=== PATIENT | female | born 1975 | race African-American/Black ===

== ENCOUNTER 2017-02-05 09:34 | Emergency (ER) | payer OTHER ==
[~2017-02-05] VITALS: Ht 167.6 cm; Wt 81.6 kg
[~2017-02-05 09:34] MED LIST: AMOXICILLIN500 MG ORAL; ROBITUSSIN COU118 M4 PO; SYNTHROID25 MCG ORAL
[2017-02-05 09:43] VITALS: BP 134/93
[2017-02-05 10:06] LABS: BASOPHILS % (AUTO) 0.7 % (0.0-2.0); EOSINOPHILS % (AUTO) 0.5 % (0.0-3.0); MEAN CORPUSCULAR HEMOGLOBIN 31.8 PG (27.0-31.0); MEAN CORPUSCULAR HGB CONC 33.4 G/DL (32.0-36.0); MEAN CORPUSCULAR VOLUME 95 FL (80-99); MEAN PLATELET VOLUME 8.8 FL (6.5-10.1); MONOCYTES % (AUTO) 6.2 % (1.0-10.0); NEUTROPHILS % (AUTO) 77.7 % (45.0-75.0); PLATELET COUNT 245 K/UL (150-450); WHITE BLOOD COUNT 13.9 K/UL (4.8-10.8)
[2017-02-05 10:16] LABS: APPEARANCE,URINE CLEAR; KETONES,URINE NEGATIVE (NEGATIVE); LEUKOCYTE ESTERASE ,URINE NEGATIVE (NEGATIVE); NITRITE,URINE NEGATIVE (NEGATIVE); PH,URINE 6.5 (4.5-8.0); PROTEIN,URINE NEGATIVE (NEGATIVE); UROBILINOGEN,URINE NORMAL MG/DL (0.0-1.0)
[2017-02-05 10:18] LABS: ALANINE AMINOTRANSFERASE 23 U/L (3-33); ALBUMIN/GLOBULIN RATIO 1.2 (1.0-2.7); ANION GAP 12 (5-15); ASPARTATE AMINO TRANSFERASE 16 U/L (5-40); CARBON DIOXIDE 29 mEQ/L (20-30); CHLORIDE 95 mEQ/L (98-107); CREATININE 0.6 mg/dL (0.5-0.9); GLOMERULAR FILTRATION RATE > 60 mL/min (>60); HEMOLYSIS 11; LIPASE 17 U/L (< 60); POTASSIUM 3.2 mEQ/L (3.4-4.9); SODIUM 136 mEQ/L (135-145)
[2017-02-05 11:09] VITALS: BP 129/89
[2017-02-05] MEDS ORDERED: CYCLOBENZAPRINE10 MG ORAL (11:50)
[2017-02-05] MEDS ORDERED: NITROFURANTOIN100 M2 ORAL (11:50)
[2017-02-05] MEDS ORDERED: IBUPROFEN600 MG ORAL (11:50)
[2017-02-05 13:00] VITALS: BP 115/79
--- NOTE | 2017-02-05 13:32 | Diagnostic Imaging Report ---
Clinical Indication: Epigastric and flank pain Technique: No oral contrast utilized, per emergency room physician request IV administration nonionic contrast. Venous phase spiral acquisition obtained through the abdomen and pelvis. Multiplanar reconstructions were generated. Total dose length product 1034 mGycm. CTDIvol(s) 18 mGy. Dose reduction achieved using automated exposure control Comparison: None Findings: Lack of oral contrast limits assessment of the GI tract. There is no evidence of diverticulosis or diverticulitis. The appendix is normal. Small bowel loops are fluid-filled, nondilated. The distal esophagus, stomach, duodenum are unremarkable. No free or loculated intraperitoneal air or fluid is evident. The liver demonstrates a 17 mm attenuation lesion within segment. This demonstrates some questionable peripheral nodularity, possibly some enhancement. There is a very faint 11 mm low-attenuation lesion within segment 8. There are a few other subcentimeter low-attenuation hepatic lesions which are too small to characterize. The gallbladder, bile ducts, pancreas on the spleen right adrenal are unremarkable. There is a 15 x 10 mm mass in the left adrenal. The kidneys are unremarkable. No calculi or hydronephrosis. No retroperitoneal or mesenteric mass or adenopathy. The uterus is enlarged, heterogeneous. Uncertain as to whether there are multiple fibroids or a single dominant fundal fibroid. The ovaries are. No pelvic adenopathy. The included lung bases are clear. The bones are unremarkable. Impression: Limited assessment of the GI tract, due to lack of oral contrast Fluid-filled small bowel loops, significance uncertain but could represent mild enteritis changes No acute process otherwise Multiple liver lesions, as described. The smaller subcentimeter ones could represent benign simple cysts or bile hamartomas. However, the larger are nonspecific, do not appear cystic. Could represent multiple atypical hemangiomas, but neoplasm not excludable. Consider further evaluation with liver protocol MRI 15 mm left adrenal mass. MRI with adrenal protocol likewise recommended Fibroid uterus The CT scanner at [facility] is accredited by the [employer] and the scans are performed using protocols designed to limit radiation exposure to as low as reasonably achievable to attain images of sufficient resolution adequate for diagnostic evaluation.
--- NOTE | 2017-02-05 17:27 | Emergency Room Report ---
History of Present Illness General Chief Complaint: Female Urogenital Problems Source: Patient Present Illness HPI 41-year-old female presents ED complaining of back pain x2 months. Denies trauma. Notes pain to the lower back. Throbbing, 04/21. Nonradiating. Patient states there is increased urinary frequency x2 months. Denies any dysuria. Denies hematuria. Denies fevers or chills. Denies nausea or vomiting. Also notes some pain to middle abdomen. No other aggravating or relieving factors. Denies any other associated symptoms Allergies: Coded Allergies: No Known Allergies (Unverified , 08/22/16) Patient History Past Medical History: none Past Surgical History: none Pertinent Family History: none Social History: Denies: alcohol use, drug use, smoking Immunizations: UTD Reviewed Nursing Documentation: PMH: Agreed, PSxH: Agreed Review of Systems All Other Systems: negative except mentioned in HPI Physical Exam Vital Signs Date Time Temp Pulse Resp B/P Pulse Ox O2 Delivery O2 Flow Rate FiO2 02/05/17 09:38 98.1 96 20 134/93 100 Room Air Sp02 EP Interpretation: reviewed, normal General Appearance: no apparent distress, alert, GCS 15, non-toxic Head: normocephalic Eyes: bilateral eye PERRL, bilateral eye normal inspection ENT: normal ENT inspection Neck: normal inspection Respiratory: chest non-tender, lungs clear, normal breath sounds, speaking full sentences Cardiovascular #1: regular rate, rhythm, no edema Gastrointestinal: normal bowel sounds, soft, non-distended, no guarding, no rebound, tenderness - periumbilical Rectal: deferred Genitourinary: CVA tenderness (R), CVA tenderness (L) Musculoskeletal: other - paraspinal lumbar tenderness Neurologic: alert, oriented x3, responsive, motor strength/tone normal, sensory intact, speech normal Psychiatric: normal inspection Skin: normal inspection Lymphatic: normal inspection Medical Decision Making Diagnostic Impression: Primary Impression: Dysuria ER Course Hospital Course 41-year-old F presents to ED with abdominal pain, flank pain, back pain Differential diagnosis includes-appendicitis, cholecystitis, small bowel obstruction, gastritis, Clinical course Patient placed on stretcher. After initial history and physical I ordered labs , IV fluids,CT scan Labs - noted leukocytosis, electyrolytes ok, LFTs normal, UA unremarkable CT scan shows some lesions in the liver which require further evaluation with MRI. adrenal mass noted Discussed findings with the patient. She will followup with PMD. Pain in back is a muscular however given dysuria symptoms we will provide antibiotics. I feel this is a highly complex case requiring extensive working including EKG/ Rhythm strip, Xray/CT/US, Blood/urine lab work, repeat exams while in ED, and administration of strong opiates/narcotics for pain control, admission to hospital or close patient follow up. Diagnosis - dysuria Stable and discharged to home with Rx Macrobid, Motrin, FLexeril. Followup with PMD. Return to ED if symptoms recur or worsen Labs Test 02/05/17 09:45 White Blood Count 13.9 K/UL (4.8-10.8) Red Blood Count 4.70 M/UL (4.20-5.40) Hemoglobin 15.0 G/DL (12.0-16.0) Hematocrit 44.7 % (37.0-47.0) Mean Corpuscular Volume 95 FL (80-99) Mean Corpuscular Hemoglobin 31.8 PG (27.0-31.0) Mean Corpuscular Hemoglobin Concent 33.4 G/DL (32.0-36.0) Red Cell Distribution Width 12.0 % (11.6-14.8) Platelet Count 245 K/UL (150-450) Mean Platelet Volume 8.8 FL (6.5-10.1) Neutrophils (%) (Auto) 77.7 % (45.0-75.0) Lymphocytes (%) (Auto) 15.0 % (20.0-45.0) Monocytes (%) (Auto) 6.2 % (1.0-10.0) Eosinophils (%) (Auto) 0.5 % (0.0-3.0) Basophils (%) (Auto) 0.7 % (0.0-2.0) Urine Color Pale yellow Urine Appearance Clear Urine pH 6.5 (4.5-8.0) Urine Specific [place] 1.010 (1.005-1.035) Urine Protein Negative (NEGATIVE) Urine Glucose (UA) Negative (NEGATIVE) Urine Ketones Negative (NEGATIVE) Urine Occult Blood Negative (NEGATIVE) Urine Nitrite Negative (NEGATIVE) Urine Bilirubin Negative (NEGATIVE) Urine Urobilinogen Normal MG/DL (0.0-1.0) Urine Leukocyte Esterase Negative (NEGATIVE) Urine HCG, Qualitative Negative Sodium Level 136 mEQ/L (135-145) Potassium Level 3.2 mEQ/L (3.4-4.9) Chloride Level 95 mEQ/L (98-107) Carbon Dioxide Level 29 mEQ/L (20-30) Anion Gap 12 (5-15) Blood Urea Nitrogen 11 mg/dL (7-23) Creatinine 0.6 mg/dL (0.5-0.9) Estimat Glomerular Filtration Rate > 60 mL/min (>60) Glucose Level 91 mg/dL (74-106) Calcium Level 9.0 mg/dL (8.6-10.2) Total Bilirubin 0.3 mg/dL (0.0-1.2) Aspartate Amino Transf (AST/SGOT) 16 U/L (5-40) Alanine Aminotransferase (ALT/SGPT) 23 U/L (3-33) Alkaline Phosphatase 51 U/L (35-104) Total Protein 7.0 g/dL (6.6-8.7) Albumin 3.9 g/dL (3.5-5.2) Globulin 3.1 g/dL Albumin/Globulin Ratio 1.2 (1.0-2.7) Lipase 17 U/L (< 60) CT/MRI/US Diagnostic Results CT/MRI/US Diagnostic Results : Imaging Test Ordered: CT A/P Impression Multiple liver lesions, as described. The smaller subcentimeter ones could represent benign simple cysts or bile hamartomas. However, the larger are nonspecific, do not appear cystic. Could represent multiple atypical hemangiomas, but neoplasm not excludable. Consider further evaluation with liver protocol MRI 15 mm left adrenal mass. MRI with adrenal protocol likewise recommended Fibroid uterus Last Vital Signs Date Time Temp Pulse Resp B/P Pulse Ox O2 Delivery O2 Flow Rate FiO2 02/05/17 13:00 98.1 82 20 115/79 100 Room Air Status: improved Disposition: HOME, SELF-CARE Condition: Stable Scripts Cyclobenzaprine Hcl* (FLEXERIL*) 10 Mg Tablet 10 MG ORAL TID Y for Muscle Spasm, #20 TAB Prov: FARHAD ALMAZAN M.D. 02/05/17 Ibuprofen* (MOTRIN*) 600 Mg Tablet 600 MG ORAL Q8H Y for For Pain, #30 TAB 0 Refills Prov: FARHAD ALMAZAN M.D. 02/05/17 Nitrofurantoin Monohyd/M-Cryst* (MACROBID 100 MG*) 100 Mg Capsule 100 MG ORAL EVERY 12 HOURS for 7 Days, CAP Prov: FARHAD ALMAZAN M.D. 02/05/17 Patient Instructions: Urinary Tract Infection FARHAD ALMAZAN M.D. Feb 05, 2017 17:27
== END 2017-02-05 13:02 | disposition left against medical advice (07) ==
LOC: EMR 10:00
DX: R30.0 Dysuria (principal); M54.5 Low back pain; R10.33 Periumbilical pain; D72.829 Elevated white blood cell count, unspecified; K76.9 Liver disease, unspecified; D25.9 Leiomyoma of uterus, unspecified; E27.9 Disorder of adrenal gland, unspecified
CPT/HCPCS: 36415; 74177; 80053; 81003; 81025; 83690; 85025; 96360; 99284; Q9967

== ENCOUNTER 2017-05-05 13:13 | Emergency (ER) | payer OTHER ==
[~2017-05-05] VITALS: Ht 167.6 cm; Wt 79.4 kg
[~2017-05-05 13:13] MED LIST changes: +CYCLOBENZAPRINE10 MG ORAL; +IBUPROFEN600 MG ORAL; +NITROFURANTOIN100 M2 ORAL
[2017-05-05 13:46] VITALS: BP 131/78
--- NOTE | 2017-05-05 13:59 | Emergency Room Report ---
History of Present Illness General Chief Complaint: Burn/Smoke Inhalation Present Illness HPI 41-year-old female presents to the emergency department complaining of burn to the right forearm x5 days. Patient reports initial blistering which has popped she states she has 8/10 in severity tenderness and sensitivity localized to the area of the burn. Patient states she sustained a burn while cooking. Denies fevers, progressive erythema, increased temperature palpation. Patient denies past medical history. Denies CP, Palpitations, LOC, AMS, dizziness, Changes in Vision, Sensation, paresthesias, or a sudden severe headache. Allergies: Coded Allergies: No Known Allergies (Unverified , 08/22/16) Patient History Past Medical History: see triage record Past Surgical History: none Pertinent Family History: none Now: No Reviewed Nursing Documentation: PMH: Agreed, PSxH: Agreed Review of Systems All Other Systems: negative except mentioned in HPI Physical Exam Vital Signs Date Time Temp Pulse Resp B/P Pulse Ox O2 Delivery O2 Flow Rate FiO2 05/05/17 13:26 98.2 88 20 131/78 98 Room Air Sp02 EP Interpretation: reviewed, normal General Appearance: no apparent distress, alert, GCS 15, non-toxic Head: normocephalic, atraumatic Eyes: bilateral eye PERRL, bilateral eye normal inspection ENT: hearing grossly normal, normal pharynx, no angioedema, normal voice Neck: full range of motion, supple/symm/no masses Respiratory: lungs clear, normal breath sounds, speaking full sentences Cardiovascular #1: regular rate, rhythm, no edema Musculoskeletal: back normal, gait/station normal, normal range of motion, non- tender Neurologic: alert, oriented x3, responsive, motor strength/tone normal, sensory intact, speech normal Psychiatric: judgement/insight normal, memory normal, mood/affect normal Skin: normal color, warm/dry, well hydrated, [place] - Second-degree burn of the right forearm covering 1 % of the BSA, non-circumferential, no erythema, no increased temperature to palpation. Medical Decision Making PA Attestation Dr. mccoy is my supervising Physician whom patient management has been discussed with. Diagnostic Impression: Primary Impression: Burn injury ER Course Pt. presents to the ED c/o pain, swelling, and erythema of Right forearm. s/p burn while cooking 5 days ago. Ddx considered but are not limited to cellulitis, burn, Septic Joint, fracture, d/L, gout, fungal infection, DVT Vital signs: are WNL, pt. is afebrile H&PE are most consistent with : Second-degree burn of the right forearm covering 1 % of the BSA, non-circumferential- no evidence of secondary infection. ORDERS: none required at this time, the diagnosis is clinical ED INTERVENTIONS: -Wound care - Silvadene cream and sterile dressing was applied. DISCHARGE: At this time pt. is stable for d/c to home. Will provide printed patient care instructions, and any necessary prescriptions. Care plan and follow up instructions have been discussed with the patient prior to discharge. Last Vital Signs Date Time Temp Pulse Resp B/P Pulse Ox O2 Delivery O2 Flow Rate FiO2 05/05/17 13:46 88 20 Room Air 05/05/17 13:46 98.2 131/78 98 Disposition: HOME, SELF-CARE Condition: Stable Scripts Lidocaine (Lidocaine) 15 Gm Cream..g. 1 GM TP QID, #15 GM Prov: Genevieve Maynard 05/05/17 Patient Instructions: Second-Degree Burn Additional Instructions: Take medications as directed. Follow up with a Primary Care Provider in 3-5 days, even if your symptoms have resolved. --Please review list of primary care clinics, if you do not already have a primary care provider Return sooner to ED if new symptoms occur, or current symptoms become worse. - Please note that this Emergency Department Report was dictated using [employer] technology software, occasionally this can lead to erroneous entry secondary to interpretation by the dictation equipment. Genevieve Maynard May 05, 2017 13:59
[2017-05-05] MEDS ORDERED: Silver Sulfadiazine Cream 25gm TOPIC ONE (14:00)
[2017-05-05] MEDS ORDERED: LIDOCAINE15 GM TP (14:03)
[2017-05-05 14:08] VITALS: BP 131/78
== END 2017-05-05 14:10 | disposition home or self-care (01) ==
LOC: EMR 14:10
DX: T22.211A Burn of second degree of right forearm, initial encounter (principal); T31.0 Burns involving less than 10% of body surface; X08.8XXA Exposure to other specified smoke, fire and flames, initial encounter; Y93.G3 Activity, cooking and baking; Y92.9 Unspecified place or not applicable
CPT/HCPCS: 99283

== ENCOUNTER 2017-12-25 19:14 | Emergency (ER) | payer SELFPAY ==
[~2017-12-25] VITALS: Ht 167.6 cm; Wt 85.7 kg
[~2017-12-25 19:14] MED LIST changes: +LIDOCAINE15 GM TP
[2017-12-25 19:40] VITALS: BP 146/99
[2017-12-25] MEDS ORDERED: ERYTHROMYCIN3.5 GM BOTH EYES (19:49)
--- NOTE | 2017-12-25 19:49 | Emergency Room Report ---
History of Present Illness General Chief Complaint: Eye Problems Source: Patient Present Illness HPI 42 yo female patient presents to ER complaining of bilateral injection in eyes. Patient reports itchiness and yellow crusting of eyes in the morning. Patient denies vision changes, denies vision loss. Reports had been using eye drops given to her by her mother but that she does not believe they are working. Denies contacts with similar symptoms. Denies FB sensation. Denies fever. Denies exposure to chemicals. Denies chest pain, SOB, rash. Denies STI. Denies wearing glasses or contact lenses. Allergies: Coded Allergies: No Known Allergies (Unverified , 08/22/16) Patient History Past Medical History: see triage record Last Menstrual Period: 11/27/17 Now: No : 3 Para: 3 Reviewed Nursing Documentation: PMH: Agreed, PSxH: Agreed Nursing Documentation-PMH Past Medical History: No History, Except For Review of Systems All Other Systems: negative except mentioned in HPI Physical Exam Vital Signs Date Time Temp Pulse Resp B/P (MAP) Pulse Ox O2 Delivery O2 Flow Rate FiO2 12/25/17 19:24 98.6 87 14 146/99 98 Room Air 98.6 Sp02 EP Interpretation: reviewed, normal General Appearance: well appearing, no apparent distress, alert, GCS 15 Head: normocephalic, atraumatic Eyes: bilateral eye normal inspection, bilateral eye PERRL, bilateral eye Scleral Injection ENT: hearing grossly normal, normal pharynx, no angioedema, normal voice, TMs + canals normal, uvula midline, moist mucus membranes Neck: full range of motion Respiratory: lungs clear, normal breath sounds, no rhonchi, no respiratory distress, no accessory muscle use, no wheezing, speaking full sentences Cardiovascular #1: regular rate, rhythm, no edema Gastrointestinal: non tender, soft, no mass, non-distended, no guarding, no rebound Genitourinary: no CVA tenderness Musculoskeletal: back normal, digits/nails normal, gait/station normal, normal range of motion, non-tender Neurologic: alert, oriented x3, responsive, motor strength/tone normal, sensory intact Psychiatric: mood/affect normal Skin: no rash Lymphatic: no adenopathy Medical Decision Making PA Attestation Dr. Douglas is my supervising Physician whom patient management has been discussed with. Diagnostic Impression: Primary Impression: Bacterial conjunctivitis ER Course Pt. presents to the ED c/o bilateral injection. Ddx considered but are not limited to allergic conjunctivitis, bacterial conjunctivitis, periorbital cellulitis, URI, sinusitis. Vital signs: are WNL, pt. is afebrile Patient has no signs of surrounding cellulitis, no pain with eye movement, does not require imaging at this time. ORDERS: none required at this time, the diagnosis is clinical ED INTERVENTIONS: None required at this time. DISCHARGE: Rx provided for Erythromycin ointment. Informed patient to apply to both eyes. At this time pt. is stable for d/c to home. Patient is resting comfortably, in no acute distress, nontoxic appearing, talking and smiling without difficulty. Will provide printed patient care instructions, and any necessary prescriptions. 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 Care plan and follow up instructions have been discussed with the patient prior to discharge. Patient questions asked and answered. Patient reports undestanding and agreement to treatment plan. ER precautions given. Patient instructed to return to ER immediately for any new or worsening of symptoms including but not limited to vision loss, fever, changes in vision. Last Vital Signs Date Time Temp Pulse Resp B/P (MAP) Pulse Ox O2 Delivery O2 Flow Rate FiO2 12/25/17 19:24 98.6 87 14 146/99 98 Room Air 98.6 Disposition: HOME, SELF-CARE Condition: Stable Scripts Erythromycin Base (ERYTHROMYCIN*) 3.5 Gm Oint...g. 1 APPLIC BOTH EYES BID for 7 Days, #3.5 GM 0 Refills Prov: Zhen Perera 12/25/17 Patient Instructions: Bacterial Conjunctivitis, [id number] Additional Instructions: Followup with primary care provider in 3 -5 days. Take medications as directed. Patient questions asked and answered. ER precautions given, patient instructed to return to ER immediately for any new or worsening of symptoms. Zhen Perera Dec 25, 2017 19:49
[2017-12-25 20:05] VITALS: BP 146/99
== END 2017-12-25 20:05 | disposition home or self-care (01) ==
LOC: EMR 19:39
DX: H10.9 Unspecified conjunctivitis (principal); B96.89 Other specified bacterial agents as the cause of diseases classified elsewhere
CPT/HCPCS: 99283